=== PATIENT | male | born 1990 | race Caucasian/White ===

== ENCOUNTER 2017-09-12 21:25 | Emergency (ER) | payer OTHER ==
[2017-09-12 23:18] VITALS: BP 124/85
== END 2017-09-12 23:36 | disposition home or self-care (01) ==
LOC: EDBD 21:25 → ED 21:25
DX: S16.1XXA Strain of muscle, fascia and tendon at neck level, initial encounter (principal); V43.62XA Car passenger injured in collision with other type car in traffic accident, initial encounter; Y93.19 Activity, other involving water and watercraft; Y92.488 Other paved roadways as the place of occurrence of the external cause; Y99.8 Other external cause status
CPT/HCPCS: Q0092

== ENCOUNTER 2018-08-12 15:22 | Emergency (ER) | payer OTHER ==
[~2018-08-12] VITALS: Ht 167.6 cm; Wt 73.9 kg
[2018-08-12 15:26] VITALS: Ht 167.6 cm; Wt 73.9 kg
[2018-08-12 16:35] VITALS: BP 123/74
[2018-08-14 08:55] LABS: RAPID PLASMA REAGIN Non Reactive (Non Reactive)
== END 2018-08-12 16:36 | disposition home or self-care (01) ==
LOC: ED 15:22
PROVIDERS: Emergency Medicine
DX: A60.01 Herpesviral infection of penis (principal); N34.2 Other urethritis
CPT/HCPCS: 86694; 87491; 87591; J0696; J2001